=== PATIENT | female | born 1970 | race Caucasian/White ===

== ENCOUNTER 2020-09-04 04:33 | Day surgery (SDC) | payer BC ==
[2020-08-31 15:14] VITALS: BMI 23.1
[2020-09-04] MEDS ORDERED: PROPOFOL 20 ML ONE (06:59)
[2020-09-04] MEDS ORDERED: LIDOCAINE HCL/PF 2% SDV 5ML VIAL ONE (06:59)
[2020-09-04] MEDS ORDERED: PHENYLEPHRINE HCL 10 MG/1 ML SINGLE DOSE VIAL ONE (06:59)
[2020-09-04] MEDS ORDERED: MIDAZOLAM HCL 2 MG/2 ML SINGLE DOSE VIAL ONE (06:59)
[2020-09-04] MEDS ORDERED: EPHEDRINE SULFATE/0.9% NACL/PF 50 MG/10 ML SYRINGE NR ONE (07:00)
[2020-09-04] MEDS ORDERED: LIDOCAINE HCL 2% JELLY (5 ML/TUBE) ONE (07:00)
[2020-09-04] MEDS ORDERED: ONDANSETRON 4 MG/2 ML VIAL ONE ×2 (07:56→08:23)
[2020-09-04] MEDS ORDERED: DEXAMETHASONE SOD PHOSPHATE 4 MG/1 ML VIAL ONE (07:56)
[2020-09-04] MEDS ORDERED: KETOROLAC TROMETHAMINE 30 MG/1 ML VIAL ONE (08:23)
[2020-09-04] MEDS ORDERED: oxyCODONE HCL 5 MG TABLET PO PRN ×2 (08:32→10:18)
[2020-09-04] MEDS ORDERED: IBUPROFEN 800 MG/8 ML IJ IVPB PRN (08:32)
[2020-09-04] MEDS ORDERED: IBUPROFEN 600 MG TABLET (FP) PO PRN (08:32)
[2020-09-04] MEDS ORDERED: ONDANSETRON 4 MG/2 ML VIAL IVPUSH PRN (08:32)
[2020-09-04] MEDS ORDERED: ELECTROLYTE-148 SOLN 1,000 ML IV SCH (08:45)
[2020-09-04 10:00] VITALS: TEMP 97
[2020-09-04 11:38] VITALS: BP 107/66; PULSE 53
== END 2020-09-04 11:30 | disposition home or self-care (01) ==
LOC: JASU-SURG 04:33
PROVIDERS: ATTEND Obstetrics & Gynecology
PROC: 0UB98ZX Excision of Uterus, Via Natural or Artificial Opening Endoscopic, Diagnostic (ICD-10-PCS; 2020-09-04)
PROC: 0UDB8ZX Extraction of Endometrium, Via Natural or Artificial Opening Endoscopic, Diagnostic (ICD-10-PCS; 2020-09-04)
PROC: 0UB98ZZ Excision of Uterus, Via Natural or Artificial Opening Endoscopic (ICD-10-PCS; principal; 2020-09-04 08:08)
PROC: 0UBC8ZX Excision of Cervix, Via Natural or Artificial Opening Endoscopic, Diagnostic (ICD-10-PCS; 2020-09-04 08:08)
DX: N92.1 Excessive and frequent menstruation with irregular cycle (principal); N84.0 Polyp of corpus uteri; N84.1 Polyp of cervix uteri; D25.9 Leiomyoma of uterus, unspecified
CPT/HCPCS: 81025; 88305-TC; 94760

== ENCOUNTER 2023-03-03 04:09 | Day surgery (SDC) | payer BC ==
[2023-02-26 13:58] VITALS: BMI 21.6
[2023-03-03] MEDS ORDERED: MIDAZOLAM HCL 2 MG/2 ML SINGLE DOSE VIAL ONE (07:35)
[2023-03-03] MEDS ORDERED: LIDOCAINE HCL/PF 2% SDV 5ML VIAL ONE (07:35)
[2023-03-03] MEDS ORDERED: PROPOFOL 20 ML ONE (07:35)
[2023-03-03] MEDS ORDERED: IBUPROFEN 800 MG/8 ML IJ IVPB PRN (07:44)
[2023-03-03] MEDS ORDERED: oxyCODONE HCL 5 MG TABLET PO PRN (07:44)
[2023-03-03] MEDS ORDERED: ONDANSETRON 4 MG/2 ML VIAL IVPUSH PRN (07:44)
[2023-03-03] MEDS ORDERED: IBUPROFEN 600 MG TABLET (FP) PO PRN (07:44)
[2023-03-03] MEDS ORDERED: ELECTROLYTE-148 SOLN 1,000 ML IV SCH (07:45)
[2023-03-03] MEDS ORDERED: DEXAMETHASONE SOD PHOSPHATE 4 MG/1 ML VIAL ONE (07:57)
[2023-03-03] MEDS ORDERED: KETOROLAC TROMETHAMINE 30 MG/1 ML VIAL ONE (07:57)
[2023-03-03] MEDS ORDERED: ACETAMINOPHEN 1000 MG/100 ML BAG IVPB PRN (08:30)
[2023-03-03] MEDS ORDERED: LACTATED RINGERS SOLUTION 1,000 ML IV SCH (08:30)
[2023-03-03 10:55] VITALS: RESP 20; TEMP 97.8
[2023-03-03 13:30] VITALS: BP 120/70; PULSE 70
== END 2023-03-03 12:15 | disposition home or self-care (01) ==
LOC: JASU-SURG 04:09
PROVIDERS: ATTEND Obstetrics & Gynecology
PROC: 0UB98ZZ Excision of Uterus, Via Natural or Artificial Opening Endoscopic (ICD-10-PCS; principal; 2023-03-03 07:30)
DX: N92.4 Excessive bleeding in the premenopausal period (principal); N84.0 Polyp of corpus uteri; N72 Inflammatory disease of cervix uteri; C50.919 Malignant neoplasm of unspecified site of unspecified female breast
CPT/HCPCS: 86850; 86900; 86901; 88305-TC; 94760